=== PATIENT | female | born 1955 | race Caucasian/White ===

== ENCOUNTER 2017-01-18 06:17 | Day surgery (SDC) | payer MEDICARE ==
--- NOTE | ~2017-01-18 | EGD ---
EGD REPORT [facility] [address] [place] [id number] NAME: RADHA LINDER : 53 STATUS : [facility] PAT#: [id number] AGE: 61 ADM/REG DATE : 01/18/17 MR#: [id number] REPORT SERV DATE: 01/18/17 DICTATED BY: ANAY DANGELO DATE: 01/18/17 REPORT STATUS : Draft [facility] DATE: 01/18/17 [facility] Center Patient Name: Radha Linder Date of : 1955 Attending MD: ANAY DANGELO MD Procedure Date No Time: 01/18/2017 Procedure: Upper GI endoscopy Indications: Dysphagia, Heartburn; Nexium OTC daily. Patient Profile: Informed consent was obtained from the patient by me prior to the procedure. Risks, benefits, and alternatives were discussed including the risk of bleeding, perforation, infection, reaction to medicine, missed lesion, and cardiopulmonary complications. Referring MD: KIRAN CROWLEY MD Medicines: Monitored Anesthesia Care Complications: No immediate complications. Procedure: Pre-Anesthesia Assessment: - ASA Grade Assessment: III - A patient with severe systemic disease. After obtaining informed consent, the endoscope was passed under direct vision. Throughout the procedure, the patient's blood pressure, pulse, and oxygen saturations were monitored continuously. The GIF [id number] was introduced through the mouth, and advanced to the second part of duodenum. The endoscope was withdrawn with careful examination all mucosal surfaces including retroflexion stomach. The upper GI endoscopy was accomplished without difficulty. The patient tolerated the procedure well. Findings: The examined duodenum was normal. Patchy mildly erythematous mucosa was found in the gastric body, at the incisura and in the gastric antrum. Biopsies were taken with a cold forceps for histology. The cardia and gastric fundus were normal. The examined esophagus was normal. 48-51F Savary dilation performed over guidewire held in antrum; mild resistance to dilation; endoscopic visualization afterwards superficial mucosal break just below UES. A single 5 mm sessile polyp was found in the gastric body. Biopsies were taken with a cold forceps for histology. Impression: - Normal examined duodenum. - Erythematous mucosa in the gastric body, incisura and antrum. Biopsied. EGD REPORT [address] [address] NAME: RADHA LINDER : 53 STATUS : [facility] PAT#: [id number] AGE: 61 ADM/REG DATE : 01/18/17 MR#: [id number] REPORT SERV DATE: 01/18/17 DICTATED BY: ANAY DANGELO DATE: 01/18/17 REPORT STATUS : Draft TRANSCRIBED BY: [email or web address] DATE: 01/18/17 - Normal cardia and gastric fundus. - Normal esophagus. Dilated. - A single gastric polyp. Biopsied. Recommendation: - Patient has a contact number available for emergencies. The signs and symptoms of potential delayed complications were discussed with the patient. Return to normal activities tomorrow. Written discharge instructions were provided to the patient. - Regular diet. - Continue present medications. - Await pathology results. - F/u in office prn. Procedure Code(s): --- Professional --- 09901, Esophagogastroduodenoscopy, flexible, transoral; with insertion of guide wire followed by passage of dilator(s) through esophagus over guide wire 47028, Esophagogastroduodenoscopy, flexible, transoral; with biopsy, single or multiple Diagnosis Code(s): --- Professional --- K31.9, Disease of stomach and duodenum, unspecified R13.10, Dysphagia, unspecified R12, Heartburn CPT copyright 2013 [employer]. All rights reserved. The codes documented in this report are preliminary and upon wind energy project manager review may be revised to meet current compliance requirements. ANAY DANGELO MD 01/18/2017 8:16 AM This report has been signed electronically. Number of Addenda: 0 Note Initiated On: 01/18/2017 7:50 AM Scope Withdrawal Time 0 hours 0 minutes 0 seconds [address] [address]
[~2017-01-18 06:17] MED LIST: ART2 PO; NEXIUM OTC PO; NICODERM C21 MG/241 TOP; PCET PO; PRIN10 PO; [UNRECOGNIZED DRUG - OTHER] PO
== END 2017-01-18 23:59 | disposition home or self-care (01) ==
LOC: DMU 06:17
PROVIDERS: Internal Medicine Gastroenterology
PROC: 0DB68ZX Excision of Stomach, Via Natural or Artificial Opening Endoscopic, Diagnostic (ICD-10-PCS; principal; 2017-01-18 07:30)
PROC: 0D758ZZ Dilation of Esophagus, Via Natural or Artificial Opening Endoscopic (ICD-10-PCS; 2017-01-18 07:30)
DX: K31.7 Polyp of stomach and duodenum (principal); K29.50 Unspecified chronic gastritis without bleeding; I10 Essential (primary) hypertension; G47.33 Obstructive sleep apnea (adult) (pediatric); G20 Parkinson's disease; G24.9 Dystonia, unspecified; G40.909 Epilepsy, unspecified, not intractable, without status epilepticus; Z79.899 Other long term (current) drug therapy
CPT/HCPCS: 88305